=== PATIENT | male | born 2005 | race African-American/Black ===

== ENCOUNTER 2023-06-14 11:41 | Emergency (ER) | payer MEDICAID ==
[~2023-06-14] VITALS: Ht 162.6 cm; Wt 68.0 kg
[2023-06-14 12:27] VITALS: BP 123/64; PULSE 79; RESP 20; TEMP 98.2; O2SAT 99
== END 2023-06-14 14:06 | disposition home or self-care (01) ==
LOC: MED 11:41
DX: K08.89 Other specified disorders of teeth and supporting structures (principal); R22.0 Localized swelling, mass and lump, head; Z79.899 Other long term (current) drug therapy
CPT/HCPCS: 99281